=== PATIENT | female | born 1980 | race Caucasian/White ===

== ENCOUNTER 2016-09-20 14:50 | Emergency (ER) | payer OTHER ==
[2016-09-20 15:00] VITALS: BMI 23.0
--- NOTE | 2016-09-20 16:01 | PDOC ---
History of Present Illness - General Chief Complaint: Pain Stated Complaint: BACK PAIN, VOMITING Time Seen by Provider: 09/20/16 15:47 History Source: Patient Exam Limitations: No Limitations - History of Present Illness Initial Comments: 36 yo F no PMH presents with vaginal bleeding, abd pain for past 2 days. She states that the pain is sharp, crampy, intermittent. She has been having shaking in her body with the pain. She c/o nausea but no vomiting or diarrhea. No fever. When she attempts to lay back, she gets back pain. Past History - Past Medical History Allergies/Adverse Reactions: Allergies Allergy/AdvReac Type Severity Reaction Status Date / Time No Known Allergies Allergy Verified 09/20/16 15:00 Home Medications: Ambulatory Orders Cephalexin Monohydrate [Keflex -] 500 mg PO BID #14 capsule 09/21/16 Thyroid Disease: Yes - Psycho/Social/Smoking Cessation Hx Anxiety: No Suicidal Ideation: No Smoking Status: No Smoking History: Never smoked Number of Cigarettes Smoked Daily: 0 Information on smoking cessation initiated: No Hx Alcohol Use: No Drug/Substance Use Hx: No Substance Use Type: None Review of Systems - Review of Systems Able to Perform ROS?: Yes Comments:: GENERAL/CONSTITUTIONAL: No fever or chills. No weakness. HEAD, EYES, EARS, NOSE AND THROAT: No change in vision. No ear pain or discharge. No sore throat. CARDIOVASCULAR: No chest pain or shortness of breath. RESPIRATORY: No cough, wheezing, or hemoptysis. GASTROINTESTINAL: +Nausea. No vomiting, diarrhea or constipation. GENITOURINARY: No dysuria, frequency, or change in urination. +Vaginal bleeding MUSCULOSKELETAL: No joint or muscle swelling or pain. No neck pain. +Low back pain. SKIN: No rash NEUROLOGIC: No headache, vertigo, loss of consciousness, or change in strength/ sensation. ENDOCRINE: No increased thirst. No abnormal weight change. HEMATOLOGIC/LYMPHATIC: No anemia, easy bleeding, or history of blood clots. ALLERGIC/IMMUNOLOGIC: No hives or skin allergy. *Physical Exam - Vital Signs Last Vital Signs Temp Pulse Resp BP Pulse Ox 98.2 F 110 H 18 116/59 97 09/20/16 14:57 09/20/16 14:57 09/20/16 14:57 09/20/16 14:57 04/03/17 14:57 - Physical Exam Comments: GENERAL: Awake, alert, and fully oriented. Appears uncomfortable. +Body tremors. HEAD: No signs of trauma EYES: PERRLA, EOMI, sclera anicteric, conjunctiva clear ENT: Auricles normal inspection, hearing grossly normal, nares patent, oropharynx clear without exudates. Moist mucosa NECK: Normal ROM, supple, no lymphadenopathy, JVD, or masses LUNGS: Breath sounds equal, clear to auscultation bilaterally. No wheezes, and no crackles HEART: Regular rate and rhythm, normal S1 and S2, no murmurs, rubs or gallops ABDOMEN: Soft, +suprapubic and LLQ tenderness, normoactive bowel sounds. No guarding, no rebound. No masses. +R CVAT. EXTREMITIES: Normal range of motion, no edema. No clubbing or cyanosis. No cords, erythema, or tenderness NEUROLOGICAL: Cranial nerves II through XII grossly intact. Normal speech, normal gait SKIN: Warm, Dry, normal turgor, no rashes or lesions noted. : No external lesions. Trace blood in the vault. No discharge. No masses, no adnexal tenderness, no CMT. ED Treatment Course - LABORATORY CBC & Chemistry Diagram: 09/20/16 16:07 09/20/16 16:07 Medical Decision Making - Medical Decision Making 09/20/16 19:[address] Recio. Presented with tremors, abd pain, vaginal bleeding. She states that she has had lengthy periods in the past, lasting up to 15 days. However, the pain and tremors have not been present before. Pelvic exam showed blood in the vault, but not heavy bleeding. No tenderness on bimanual. Labs show elevated WBC. I have ordered CT a/p to further evaluate. *DC/Admit/Observation/Transfer Diagnosis at time of Disposition: UTI (lower urinary tract infection) - Discharge Dispostion Disposition: HOME Condition at time of disposition: Improved - Prescriptions Prescriptions: Cephalexin Monohydrate [Keflex -] 500 mg PO BID #14 capsule - Patient Instructions Printed Discharge Instructions: DI for Urinary Tract Infection (UTI) Print Language: TAMAZIGHT
[2016-09-20] MEDS ORDERED: SODIUM CHLORIDE 1,000 ML IV STA ×3 (16:02→20:58)
[2016-09-20] MEDS ORDERED: ONDANSETRON 4 MG/2 ML VIAL IVPUSH ONE (16:02)
[2016-09-20] MEDS ORDERED: morphine CARPU-JECT 4 MG/1 ML DISP.SYRIN IVPUSH ONE ×2 (16:02→17:01)
[2016-09-20] MEDS ORDERED: morphine CARPU-JECT 4 MG/1 ML DISP.SYRIN ONE ×2 (16:02→17:02)
[2016-09-20] MEDS ORDERED: ONDANSETRON 4 MG/2 ML VIAL ONE (16:03)
[2016-09-20 16:45] LABS: MCH 26.4 pg (25.7-33.7); MCHC 32.4 g/dl (32.0-36.0); MEAN CELL VOLUME 81.5 fl (80-96); MEAN PLT VOLUME 9.4 fl (7.5-11.1); PLATELET COUNT 252 K/MM3 (134-434); RDW 15.7 % (11.6-15.6); WHITE BLOOD COUNT 15.7 K/mm3 (4.0-10.0)
[2016-09-20 17:04] LABS: URINE APPEARANCE SLCLOUDY; URINE COLOR AMBER; URINE GLUCOSE (UA) NEGATIVE (NEGATIVE); URINE KETONE NEGATIVE (NEGATIVE); URINE LEUK ESTERASE NEGATIVE (NEGATIVE); URINE NITRITE NEGATIVE (NEGATIVE); URINE UROBILINOGEN NEGATIVE E.U./dl (0.2-1.0)
[2016-09-20 17:20] LABS: ALBUMIN 3.8 g/dl (3.4-5.0); ANION GAP 14 (8-16); CALCIUM 8.2 mg/dL (8.5-10.1); CO2 21 mmol/L (21-32); CREATININE 0.9 mg/dL (0.55-1.02); GLUCOSE,RANDOM 107 mg/dL (74-106); SGOT/AST 21 U/L (15-37); SGPT/ALT 27 U/L (12-78)
[2016-09-20 17:21] LABS: ALK PHOS 81 U/L (45-117); BILIRUBIN,TOTAL 0.6 mg/dL (0.2-1.0); TOT PROT 7.5 g/dl (6.4-8.2)
[2016-09-20 17:25] LABS: URINE BLOOD 2+ (NEGATIVE); URINE PROTEIN 2+ (NEGATIVE)
[2016-09-20 17:28] LABS: URINE BACTERIA RARE /hpf (NONE SEEN); URINE HYALINE CAST 6 /lpf; URINE MUCUS MANY; URINE RBC 190 /hpf (0-3); URINE WBC 6 /hpf (3-5)
[2016-09-20 18:00] LABS: PLATELET ESTIMATE ADEQUATE (NORMAL)
[2016-09-20] MEDS ORDERED: CEFTRIAXONE 50 ML ONE (21:03)
--- NOTE | 2016-09-21 00:26 | PDOC ---
*Physical Exam - Vital Signs Last Vital Signs Temp Pulse Resp BP Pulse Ox 98.4 F 87 18 100/55 96 09/20/16 22:00 09/20/16 22:00 09/20/16 22:00 09/20/16 22:00 09/20/16 22:00 ED Treatment Course - LABORATORY CBC & Chemistry Diagram: 09/20/16 16:07 09/20/16 16:07 - ADDITIONAL ORDERS Additional order review: Laboratory Results 09/20/16 09/20/16 09/20/16 16:07 16:07 16:07 Sodium 139 Potassium 3.6 Chloride 104 Carbon Dioxide 21 Anion Gap 14 BUN 18 Creatinine 0.9 Creat Clearance w eGFR > 60 Random Glucose 107 H Calcium 8.2 L Total Bilirubin 0.6 D AST 21 D ALT 27 Alkaline Phosphatase 81 D Total Protein 7.5 Albumin 3.8 Lipase 136 Serum , Qual Negative Urine Color Shira Urine Appearance Slcloudy Urine pH 5.0 Ur Specific [place] 1.043 H Urine Protein 2+ H Urine Glucose (UA) Negative Urine Ketones Negative Urine Blood 2+ H Urine Nitrite Negative Urine Bilirubin 2.0 Urine Urobilinogen Negative Ur Leukocyte Esterase Negative Urine RBC 190 Urine WBC 6 Ur Epithelial Cells Moderate Urine Bacteria Rare Hyaline Casts 6 Urine Mucus Many 09/20/16 16:07 RBC 4.32 MCV 81.5 MCHC 32.4 RDW 15.7 H D MPV 9.4 Neutrophils % 82.0 D Lymphocytes % 7.0 L D Monocytes % 5.0 - RADIOLOGY Radiology Studies Ordered: Category Date Time Status CHEST PA & LAT [RAD] Stat Radiology 09/20/16 22:27 Taken - Medications Given in the ED: ED Medications Discontinued Medications Generic Name Dose Route Start Last Admin Trade Name Zhenq PRN Reason Stop Dose Admin Ceftriaxone Sodium 1,000 mg 09/20/16 20:50 09/20/16 21:10 Rocephin - IVPB 09/20/16 20:51 1,000 mg ONCE ONE Administration Diphenhydramine HCl 25 mg 09/20/16 18:49 09/20/16 18:59 Benadryl Injection - IVPB 09/20/16 18:50 25 mg ONCE ONE Administration Sodium Chloride 1,000 mls @ 1,000 mls/hr 09/20/16 16:02 09/20/16 16:10 Normal Saline - IV 09/20/16 17:01 1,000 mls/hr ASDIR STA Administration Sodium Chloride 1,000 mls @ 1,000 mls/hr 09/20/16 18:49 09/20/16 18:59 Normal Saline - IV 09/20/16 19:48 1,000 mls/hr ASDIR STA Administration Sodium Chloride 1,000 mls @ 1,000 mls/hr 09/20/16 20:58 09/20/16 21:10 Normal Saline - IV 09/20/16 21:57 1,000 mls/hr ASDIR STA Administration Morphine Sulfate 4 mg 09/20/16 16:02 09/20/16 16:10 Morphine Injection - IVPUSH 09/20/16 16:03 4 mg ONCE ONE Administration Morphine Sulfate 4 mg 09/20/16 17:01 09/20/16 17:20 Morphine Injection - IVPUSH 09/20/16 17:02 4 mg ONCE ONE Administration Ondansetron HCl 4 mg 09/20/16 16:02 09/20/16 16:10 Zofran Injection IVPUSH 09/20/16 16:03 4 mg ONCE ONE Administration Medical Decision Making - Medical Decision Making 09/21/16 00:24 pt feels better after IV Abx. Flank pain has improved. Pt will be discharged and will follow up with her pcp or the doctor referred to her in the department. *DC/Admit/Observation/Transfer Diagnosis at time of Disposition: UTI (lower urinary tract infection) - Discharge Dispostion Disposition: HOME Condition at time of disposition: Improved Admit: No - Patient Instructions Printed Discharge Instructions: DI for Urinary Tract Infection (UTI) Print Language: LUX[place]BOURGISH
[2016-09-21 01:29] VITALS: BP 112/60; PULSE 85; TEMP 98.3
== END 2016-09-21 02:43 | disposition home or self-care (01) ==
LOC: JER 14:50
PROC: 3E0337Z Introduction of Electrolytic and Water Balance Substance into Peripheral Vein, Percutaneous Approach (ICD-10-PCS; principal; 2016-09-20)
PROC: 3E033NZ Introduction of Analgesics, Hypnotics, Sedatives into Peripheral Vein, Percutaneous Approach (ICD-10-PCS; 2016-09-20)
PROC: 3E033GC Introduction of Other Therapeutic Substance into Peripheral Vein, Percutaneous Approach (ICD-10-PCS; 2016-09-20)
PROC: 3E03329 Introduction of Other Anti-infective into Peripheral Vein, Percutaneous Approach (ICD-10-PCS; 2016-09-20)
PROC: 3E033GC Introduction of Other Therapeutic Substance into Peripheral Vein, Percutaneous Approach (ICD-10-PCS; 2016-09-20)
DX: N39.0 Urinary tract infection, site not specified (principal)
CPT/HCPCS: 36415; 71020-TC; 74177-TC; 80053; 81003; 81015; 83690; 84703; 85025; 87040; 87086; 96361; 96374; 96375; 99285-25; Q9967

== ENCOUNTER 2017-11-18 09:55 | Emergency (ER) | payer OTHER ==
[2017-11-18 10:00] VITALS: BP 105/62; PULSE 75; TEMP 98.3; BMI 23.9
[2017-11-18] MEDS ORDERED: morphine SULFATE 4 MG/ML VIAL ONE (10:12)
[2017-11-18] MEDS ORDERED: morphine CARPU-JECT 4 MG/1 ML DISP.SYRIN IVPUSH ONE (10:14)
--- NOTE | 2017-11-18 10:14 | PDOC ---
History of Present Illness - General Chief Complaint: Pain Stated Complaint: STOMACH PAIN Time Seen by Provider: 11/18/17 10:06 - History of Present Illness Initial Comments: Patient is a 37 year old female, with a significant past medical history of hypothyroidism, who presents to the emergency department complaining of L flank and groin pain that started this AM. Pt was in her USOH this AM when she reports acute onset of sharp L-sided flank pain with radiation to the groin beginning suddenly after taking her morning medication. Pt denies any f/c/n/v/d , cough, SOB, CP, ab pain, diarrhea, constipation, rashes, hematuria, pyuria, dysuria, hesitancy, melena, hematochezia. Pt with no hx of kidney stones. Pt with hx of UTIs and ovarian cyst in the past, but no other [place] conditions. Pt with no recent travel, sick contacts or dietary changes. Allergies: None Past surgical history: , appendectomy Social History: Denies alcohol, drug use, smoking PMD: None 11/18/17 10:47 Past History - Past Medical History Allergies/Adverse Reactions: Allergies Allergy/AdvReac Type Severity Reaction Status Date / Time No Known Allergies Allergy Verified 11/18/17 09:56 Home Medications: Ambulatory Orders Cephalexin Monohydrate [Keflex -] 500 mg PO BID #14 capsule 09/21/16 COPD: No Thyroid Disease: Yes - Surgical History Appendectomy: Yes - Reproductive History (#): 3 Para: 3 Cervical CA: No Dysfunctional Uterine Bleeding: No Ectopic : No Endometrial CA: No Polycystic Ovaries: No Tubal Ligation: No - Suicide/Smoking/Psychosocial Hx Smoking Status: No Smoking History: Never smoked Number of Cigarettes Smoked Daily: 0 Information on smoking cessation initiated: No Hx Alcohol Use: No Drug/Substance Use Hx: No Substance Use Type: None Review of Systems - Review of Systems Comments:: GENERAL/CONSTITUTIONAL: No fever or chills. No weakness. HEAD, EYES, EARS, NOSE AND THROAT: No change in vision. No ear pain or discharge. No sore throat. CARDIOVASCULAR: No chest pain or shortness of breath RESPIRATORY: No cough, wheezing, or hemoptysis. GASTROINTESTINAL: No nausea, vomiting, diarrhea or constipation. GENITOURINARY: No dysuria, frequency, or change in urination; + groin pain, L MUSCULOSKELETAL: No joint or muscle swelling or pain. No neck pain. + L flank pain SKIN: No rash NEUROLOGIC: No headache, vertigo, loss of consciousness, or change in strength/ sensation. ENDOCRINE: No increased thirst. No abnormal weight change HEMATOLOGIC/LYMPHATIC: No anemia, easy bleeding, or history of blood clots. ALLERGIC/IMMUNOLOGIC: No hives or skin allergy. 11/18/17 10:54 *Physical Exam - Vital Signs Last Vital Signs Temp Pulse Resp BP Pulse Ox 98.3 F 75 18 105/62 100 11/18/17 09:58 11/18/17 09:58 11/18/17 09:58 11/18/17 09:58 11/18/17 09:58 - Physical Exam Comments: GENERAL: Young woman, Awake, alert, and fully oriented, in severe distress HEAD: No signs of trauma, normocephalic, atraumatic EYES: PERRLA, EOMI, sclera anicteric, conjunctiva clear ENT: Auricles normal inspection, hearing grossly normal, nares patent, oropharynx clear without exudates. Moist mucosa NECK: Normal ROM, supple, no lymphadenopathy, JVD, or masses LUNGS: No distress, speaks full sentences, clear to auscultation bilaterally HEART: Tachy, Regular rate and rhythm, normal S1 and S2, no murmurs, rubs or gallops, peripheral pulses normal and equal bilaterally. ABDOMEN: +LLQ. Soft, normoactive bowel sounds. No guarding, no rebound. No masses. + L CVA tenderness. EXTREMITIES : Normal inspection, Normal range of motion, no edema. No clubbing or cyanosis. NEUROLOGICAL: Cranial nerves II through XII grossly intact. Normal speech, normal gait, no focal sensorimotor deficits SKIN: Warm, Dry, normal turgor, no rashes or lesions noted 11/18/17 10:55 ED Treatment Course - LABORATORY CBC & Chemistry Diagram: 11/18/17 10:00 11/18/17 10:00 Medical Decision Making - Medical Decision Making Patient is a 37 year old female, with a significant past medical history of hypothyroidism, who presents to the emergency department complaining of L flank and groin pain that started this AM. Ddx kidney stone, ovarian torsion, ovarian cyst, ectopic , UTI, pyelonephritis, diverticulitis, gas pain, constipation. Plan: - cbc, cmp, coags, lactate - UA, urine culture - TVUS w/ possible f/u CT A/P if negative - Morphine IV for pain control. 11/18/17 10:59 TVUS notable for 1.8 x 1.3 cm cyst on left ovary, negative for torsion. CT A/P negative for any acute pathology. Pain better controlled, vitals stable. Will discharge home with outpt follow-up with Dr. Locke in resident clinic and pt OB/ [employer]. 11/18/17 16:46 *DC/Admit/Observation/Transfer Diagnosis at time of Disposition: Ovarian cyst Qualifiers: Laterality: left Qualified Code(s): N83.202 - Unspecified ovarian cyst, left side - Discharge Dispostion Disposition: HOME Condition at time of disposition: Good Decision to Admit order: No - Referrals Referrals: Adrian Locke MD [Staff Physician] - - Patient Instructions Printed Discharge Instructions: DI for Ovarian Cyst Additional Instructions: During your visit to the [facility] ED, you were evaluated for left-sided flank pain. You received imaging and standard lab tests, which were notable for a cyst on your left ovary. You are being discharged home with an outpatient referral for Dr. Locke in clinic for your primary care coverage and follow-up with your OB/ [employer] doctor. You imaging results have been provided to you. Please take tylenol 650mg every four hours if you experience pain until your symptoms resolve. You are being provided a referral for follow-up with Dr. Locke in the resident clinic for primary care coverage. Please call the number provided in this packet to schedule an appointment within one week. If you experience any of the following symptoms, please return to the ED: - Persistent fevers/chills >3 days - Worsening vaginal or rectal bleeding or persistent blood in your stool - Persistent pain in your abdomen or pelvis - Persistent dizziness/lightheadness/loss of consciousness - Any new or concerning symptoms - Post Discharge Activity Forms/Work/School Notes: Back to Work
--- NOTE | 2017-11-18 10:16 | PDOC ---
Attending Attestation - Resident Resident Name: Samuel De Luna - ED Attending Attestation I have performed the following: I have examined & evaluated the patient, The case was reviewed & discussed with the resident, I agree w/resident's findings & plan, Exceptions are as noted - HPI HPI: 11/18/17 10:29 37y F hx of hypothyroidism presents with sudden onset of L groin/flank pain this morning. Pain is idscribed as sharp, constant, worse in the LLQ that radiates to the L flank, no n/v, hematuria, dysuria, fever/chills, cp, diarrhea , sob. on exam pt appears uncomfortbable with mild tenderness in the LLQ. n ocva tenderness ddx includes kidney stones, ovarian torsion, ectopic will ck labs, ua, hcg 11/18/17 15:[address] abd unremarakble. TVUS noted for cyst, likely cause of her pain will dc with sales office administrator fu - Physicial Exam PE: 11/22/17 12:42 see above - Medical Decision Making 11/22/17 12:42 see above
[2017-11-18 10:48] LABS: BASO % 0.6 % (0-2.0); EOS % 2.1 % (0-4.5); HEMATOCRIT 32.5 % (32.4-45.2); HEMOGLOBIN 10.6 GM/dL (10.7-15.3); LYMPH % 28.6 % (8-40); MCH 26.2 pg (25.7-33.7); MCHC 32.5 g/dl (32.0-36.0); MEAN CELL VOLUME 80.5 fl (80-96); MEAN PLT VOLUME 9.5 fl (7.5-11.1); MONO % 8.6 % (3.8-10.2); NEUT % 60.1 % (42.8-82.8); PLATELET COUNT 287 K/MM3 (134-434); RBC 4.04 M/mm3 (3.60-5.2); RDW 15.7 % (11.6-15.6); WHITE BLOOD COUNT 6.5 K/mm3 (4.0-10.0)
[2017-11-18 10:50] LABS: URINE APPEARANCE CLEAR; URINE BILIRUBIN NEGATIVE (<2.0 mg/dL); URINE COLOR STRAW; URINE GLUCOSE (UA) NEGATIVE (NEGATIVE); URINE KETONE NEGATIVE (NEGATIVE); URINE LEUK ESTERASE NEGATIVE (NEGATIVE); URINE NITRITE NEGATIVE (NEGATIVE); URINE PROTEIN NEGATIVE (NEGATIVE); URINE UROBILINOGEN NEGATIVE mg/dL (0.2-1.0)
[2017-11-18 11:21] LABS: INR 0.96 (0.82-1.09); PROTHROMBIN TIME (PATIENT) 10.8 SEC (9.7-13.0)
[2017-11-18 11:35] LABS: ALBUMIN 3.7 g/dl (3.4-5.0); ANION GAP 9 (8-16); BLOOD UREA NITROGEN 11 mg/dL (7-18); CALCIUM 8.4 mg/dL (8.5-10.1); CHLORIDE 105 mmol/L (98-107); CO2 22 mmol/L (21-32); CREATININE 0.7 mg/dL (0.55-1.02); GLUCOSE,RANDOM 126 mg/dL (74-106); POTASSIUM 4.1 mmol/L (3.5-5.1); SGOT/AST 18 U/L (15-37); SODIUM 136 mmol/L (136-145); TOT PROT 7.4 g/dl (6.4-8.2)
[2017-11-18 11:45] LABS: ALK PHOS 93 U/L (45-117); BILIRUBIN,TOTAL 0.3 mg/dL (0.2-1.0); SGPT/ALT 21 U/L (12-78)
[2017-11-18] MEDS ORDERED: KETOROLAC TROMETHAMINE 30 MG/1 ML VIAL IVPUSH ONE (12:58)
[2017-11-18] MEDS ORDERED: KETOROLAC TROMETHAMINE 30 MG/1 ML VIAL ONE (13:23)
== END 2017-11-18 17:20 | disposition home or self-care (01) ==
LOC: JER 09:55
PROC: 3E033NZ Introduction of Analgesics, Hypnotics, Sedatives into Peripheral Vein, Percutaneous Approach (ICD-10-PCS; principal; 2017-11-18)
DX: N83.202 Unspecified ovarian cyst, left side (principal); E03.9 Hypothyroidism, unspecified
CPT/HCPCS: 36415; 74176-TC; 76830-TC; 80053; 81003; 83605; 84703; 85025; 85610; 87086; 96374; 96375; 99283-25

== ENCOUNTER 2018-01-07 11:14 | Emergency (ER) | payer OTHER ==
[2018-01-07 11:39] VITALS: BMI 22.6
[2018-01-07] MEDS ORDERED: SODIUM CHLORIDE 0.9% 1000 ML INFUS.BAG IV ONE (12:19)
[2018-01-07 12:47] LABS: URINE APPEARANCE CLEAR; URINE BILIRUBIN NEGATIVE (<2.0 mg/dL); URINE COLOR COLORLESS; URINE GLUCOSE (UA) NEGATIVE (NEGATIVE); URINE KETONE NEGATIVE (NEGATIVE); URINE LEUK ESTERASE NEGATIVE (NEGATIVE); URINE NITRITE NEGATIVE (NEGATIVE); URINE PROTEIN NEGATIVE (NEGATIVE); URINE UROBILINOGEN NEGATIVE mg/dL (0.2-1.0)
[2018-01-07] MEDS ORDERED: morphine CARPU-JECT 4 MG/1 ML DISP.SYRIN IVPUSH ONE (12:48)
[2018-01-07] MEDS ORDERED: morphine SULFATE 4 MG/ML VIAL ONE (12:52)
[2018-01-07] MEDS ORDERED: ONDANSETRON 4 MG/2 ML VIAL IVPUSH ONE (12:55)
[2018-01-07 13:02] LABS: HCG,QUALITATIVE URINE NEGATIVE
[2018-01-07] MEDS ORDERED: ONDANSETRON 4 MG/2 ML VIAL ONE (13:07)
--- NOTE | 2018-01-07 13:11 | PDOC ---
History of Present Illness - General History Source: Patient Exam Limitations: No Limitations - History of Present Illness Initial Comments: 01/07/18 13:14 The patient is a 37 year old female with a past medical history of ovarian cysts and hypothyroidism who presents to the emergency department for evaluation of abdominal pain. The patient reports moderate left lower quadrant abdominal pain since yesterday. She describes the LLQ pain as stabbing, radiating from the left side to the groin and back, and is exacerbated with movement. Pt reports 5 episodes of NBNB emesis yesterday, but denies emesis today. She reports an associated symptom of dysuria. The patient notes the pain is reminiscent of her pain associated with her prior experience with an ovarian cyst. She notes she had a normal bowel movement this morning. Of note, patient states her LMP was 01/01/18 with no abnormalities. The patient denies chest pain, shortness of breath, headache, and dizziness. Denies f/c, n/v, diarrhea, and constipation. Denies urinary frequency/urgency and hematuria. Allergies: NKDA Social History: No reported alcohol, cigarette, or drug use. Surgical History: Appendectomy, . <Maicol Schulz - Last Filed: 01/07/18 13:15> - General History Source: Patient Exam Limitations: No Limitations <Smiley Ramírez - Last Filed: 01/07/18 16:47> - General Chief Complaint: Pain Stated Complaint: ABD PAIN Time Seen by Provider: 01/07/18 11:57 Past History <Maicol Schulz - Last Filed: 01/07/18 13:15> - Past Medical History COPD: No Thyroid Disease: Yes (hypo) - Surgical History Appendectomy: Yes - Reproductive History (#): 3 Para: 3 Cervical CA: No Dysfunctional Uterine Bleeding: No Ectopic : No Endometrial CA: No Polycystic Ovaries: No Tubal Ligation: No - Suicide/Smoking/Psychosocial Hx Smoking Status: No Smoking History: Never smoked Have you smoked in the past 12 months: No Number of Cigarettes Smoked Daily: 0 Information on smoking cessation initiated: No Hx Alcohol Use: No Drug/Substance Use Hx: No Substance Use Type: None <Smiley Ramírez - Last Filed: 01/07/18 16:47> - Past Medical History Allergies/Adverse Reactions: Allergies Allergy/AdvReac Type Severity Reaction Status Date / Time No Known Allergies Allergy Verified 11/18/17 09:56 Home Medications: Ambulatory Orders NK [No Known Home Medication] 01/07/18 Review of Systems - Review of Systems Able to Perform ROS?: Yes Comments:: GENERAL/CONSTITUTIONAL: No fever or chills. No weakness. HEAD, EYES, EARS, NOSE AND THROAT: No change in vision. No ear pain or discharge. No sore throat. CARDIOVASCULAR: No chest pain or shortness of breath. RESPIRATORY: No cough, wheezing, or hemoptysis. GASTROINTESTINAL: (+)Nausea. (+)Vomiting. No diarrhea or constipation. GENITOURINARY: (+)Dysuria. No urinary frequency, or change in urination. MUSCULOSKELETAL: (+)LLQ Abdominal pain. (+)Back pain. No joint pain. No neck pain. SKIN: No rash NEUROLOGIC: No headache, vertigo, loss of consciousness, or change in strength/ sensation. ENDOCRINE: No increased thirst. No abnormal weight change. HEMATOLOGIC/LYMPHATIC: No anemia, easy bleeding, or history of blood clots. ALLERGIC/IMMUNOLOGIC: No hives or skin allergy. <Maicol Schulz - Last Filed: 01/07/18 13:15> *Physical Exam - Vital Signs Last Vital Signs Temp Pulse Resp BP Pulse Ox 98.6 F 71 17 102/62 100 01/07/18 11:36 01/07/18 11:36 01/07/18 11:36 01/07/18 11:36 01/07/18 11:36 - Physical Exam Comments: GENERAL: Awake, alert, and fully oriented, in no acute distress HEAD: No signs of trauma EYES: PERRLA, EOMI, sclera anicteric, conjunctiva clear ENT: Auricles normal inspection, hearing grossly normal, nares patent. Moist mucosa NECK: Normal ROM, supple, no lymphadenopathy, JVD, or masses LUNGS: Breath sounds equal, clear to auscultation bilaterally. No wheezes, and no crackles HEART: Regular rate and rhythm, normal S1 and S2, no murmurs, rubs or gallops ABDOMEN: (+)Suprapubic left lower quadrant tenderness with moderate rebound and guarding. (+)Left CVA tenderness. Pelvic: (Joanne present) left adnexal tenderness. Speculiant exam: white discharge in vaginal vault. EXTREMITIES: Normal range of motion, no edema. No erythema or tenderness. DP/PT pulses 2+ and symmetric. Warm and well perfused. NEUROLOGICAL: Moves all extremities. Normal speech, normal gait SKIN: Warm, Dry, normal turgor, no rashes or lesions noted. <Maicol Schulz - Last Filed: 01/07/18 13:15> - Vital Signs Last Vital Signs Temp Pulse Resp BP Pulse Ox 98.6 F 71 17 102/62 100 01/07/18 11:36 01/07/18 11:36 01/07/18 11:36 01/07/18 11:36 01/07/18 11:36 <Anders Ramíreza - Last Filed: 01/07/18 16:47> ED Treatment Course - ADDITIONAL ORDERS Additional order review: Laboratory Results 01/07/18 12:31 Urine Color Colorless Urine Appearance Clear Urine pH 6.0 D Ur Specific [place] 1.002 Urine Protein Negative Urine Glucose (UA) Negative Urine Ketones Negative Urine Blood Negative Urine Nitrite Negative Urine Bilirubin Negative Urine Urobilinogen Negative Ur Leukocyte Esterase Negative Urine HCG, Qual Negative - Medications Given in the ED: ED Medications Discontinued Medications Generic Name Dose Route Start Last Admin Trade Name Freq PRN Reason Stop Dose Admin Morphine Sulfate 4 mg 01/07/18 12:48 01/07/18 13:06 Morphine Injection - IVPUSH 01/07/18 12:49 4 mg ONCE ONE Administration Ondansetron HCl 4 mg 01/07/18 12:55 01/07/18 13:06 Zofran Injection IVPUSH 01/07/18 12:56 4 mg ONCE ONE Administration Sodium Chloride 1,000 ml 01/07/18 12:19 01/07/18 13:06 Normal Saline - IV 01/07/18 12:20 1,000 ml ONCE ONE Administration <Maicol Schulz - Last Filed: 01/07/18 13:15> - LABORATORY CBC & Chemistry Diagram: 01/07/18 13:01 01/07/18 13:01 - ADDITIONAL ORDERS Additional order review: Laboratory Results 01/07/18 12:31 Urine Color Colorless Urine Appearance Clear Urine pH 6.0 D Ur Specific [place] 1.002 Urine Protein Negative Urine Glucose (UA) Negative Urine Ketones Negative Urine Blood Negative Urine Nitrite Negative Urine Bilirubin Negative Urine Urobilinogen Negative Ur Leukocyte Esterase Negative Urine HCG, Qual Negative - RADIOLOGY Radiology Studies Ordered: Category Date Time Status TRANSVAGINAL ULTRASOUND US [US] Stat Ultrasound 01/07/18 12:49 Ordered <Smiley Ramírez - Last Filed: 01/07/18 16:47> Medical Decision Making - Medical Decision Making 01/07/18 16:46 pt feels improved. tolerating soup and cracklers. ct a/p negative. transvaginal us negative. dc home with instructions for gi followup , return as needed. <Smiley Ramírez - Last Filed: 01/07/18 16:47> *DC/Admit/Observation/Transfer - Attestations Scribe Attestion: Documentation prepared by Maicol Schulz, acting as medical receptionist assistant for Smiley Ramírez MD. <Maicol Schulz - Last Filed: 01/07/18 13:15> <Smiley Ramírez - Last Filed: 01/07/18 16:47> Diagnosis at time of Disposition: Gastritis - Discharge Dispostion Disposition: HOME Condition at time of disposition: Improved - Referrals Referrals: Jack Marin MD [Staff Physician] - - Patient Instructions Printed Discharge Instructions: DI for Abdominal Pain-Adult Additional Instructions: your ct of your abdomen was negative for any acute illness. your labs are all normal including negative urinalysis. your ultrasound of your ovaries is also normal. return for any problems or concerns. follow up with your primary doctor.
[2018-01-07 13:20] LABS: BASO % 0.5 % (0-2.0); EOS % 1.6 % (0-4.5); HEMATOCRIT 36.4 % (32.4-45.2); HEMOGLOBIN 11.8 GM/dL (10.7-15.3); LYMPH % 37.4 % (8-40); MCH 26.5 pg (25.7-33.7); MCHC 32.4 g/dl (32.0-36.0); MEAN CELL VOLUME 81.7 fl (80-96); MEAN PLT VOLUME 9.2 fl (7.5-11.1); MONO % 7.7 % (3.8-10.2); NEUT % 52.8 % (42.8-82.8); PLATELET COUNT 317 K/MM3 (134-434); RBC 4.46 M/mm3 (3.60-5.2); RDW 16.8 % (11.6-15.6); WHITE BLOOD COUNT 6.8 K/mm3 (4.0-10.0)
[2018-01-07 14:55] LABS: ALBUMIN 3.9 g/dl (3.4-5.0); ALK PHOS 90 U/L (45-117); ANION GAP 8 (8-16); BILIRUBIN,TOTAL 0.3 mg/dL (0.2-1.0); BLOOD UREA NITROGEN 8 mg/dL (7-18); CALCIUM 8.9 mg/dL (8.5-10.1); CHLORIDE 108 mmol/L (98-107); CO2 25 mmol/L (21-32); CREATININE 0.7 mg/dL (0.55-1.02); GLUCOSE,RANDOM 88 mg/dL (74-106); LIPASE 144 U/L (73-393); SGOT/AST 18 U/L (15-37); SGPT/ALT 24 U/L (12-78); SODIUM 141 mmol/L (136-145); TOT PROT 7.7 g/dl (6.4-8.2)
[2018-01-07] MEDS ORDERED: KETOROLAC TROMETHAMINE 30 MG/1 ML VIAL ONE (15:02)
[2018-01-07] MEDS ORDERED: KETOROLAC TROMETHAMINE 30 MG/1 ML VIAL IVPUSH ONE (15:03)
[2018-01-07 18:22] VITALS: BP 101/54; PULSE 75; TEMP 98.1
== END 2018-01-07 16:50 | disposition home or self-care (01) ==
LOC: JER 11:14
PROC: 3E033GC Introduction of Other Therapeutic Substance into Peripheral Vein, Percutaneous Approach (ICD-10-PCS; principal; 2018-01-07)
PROC: 3E033NZ Introduction of Analgesics, Hypnotics, Sedatives into Peripheral Vein, Percutaneous Approach (ICD-10-PCS; 2018-01-07)
PROC: 3E0333Z Introduction of Anti-inflammatory into Peripheral Vein, Percutaneous Approach (ICD-10-PCS; 2018-01-07)
DX: K29.70 Gastritis, unspecified, without bleeding (principal); E03.9 Hypothyroidism, unspecified
CPT/HCPCS: 36415; 74176; 76830-TC; 80053; 81003; 83690; 84703; 85025; 96374; 96375; 99283-25; J7030

== ENCOUNTER 2018-04-25 16:47 | Emergency (ER) | payer OTHER ==
--- NOTE | 2018-04-25 17:04 | PDOC ---
Rapid Medical Evaluation Chief Complaint: Pain Time Seen by Provider: 04/25/18 17:01 Medical Evaluation: Allergies Allergy/AdvReac Type Severity Reaction Status Date / Time No Known Allergies Allergy Verified 11/18/17 09:56 04/25/18 17:02 I have performed a brief in person evaluation of this patient. This patient presents with a CC of: left rib pain Pt is a 37 YO female who states that she fell onto her dresser last night onto her left rib. Pt took Motrin 40 min BLOOD COORDINATOR. Pt states the pain is a 7/10. PE: Skin: Clear Chest: Pt has pain upon palpation to the left anterior ribs. Lungs: Clear Heart: RRR Abd: No pain MS: Moves all extremities without difficulty. Neuro: Alert and oriented Psych: Appropriate affect I have ordered the following: left rib xray with AP CXR The patient will proceed to the [facility] for further evaluation. Discharge Disposition - Diagnosis Rib pain on left side - Referrals - Patient Instructions - Post Discharge Activity
[2018-04-25 17:05] VITALS: BMI 25.4
[2018-04-25] MEDS ORDERED: SODIUM CHLORIDE 0.9% 500 ML INFUS.BAG IV ONE (17:41)
[2018-04-25] MEDS ORDERED: SODIUM CHLORIDE 0.9% 1000 ML INFUS.BAG IV ONE ×2 (17:47→18:54)
[2018-04-25 17:58] LABS: BASO % 0.8 % (0-2.0); EOS % 1.9 % (0-4.5); HEMATOCRIT 35.1 % (32.4-45.2); HEMOGLOBIN 11.9 GM/dL (10.7-15.3); LYMPH % 32.5 % (8-40); MCH 27.7 pg (25.7-33.7); MCHC 33.9 g/dl (32.0-36.0); MEAN CELL VOLUME 81.8 fl (80-96); MEAN PLT VOLUME 8.9 fl (7.5-11.1); MONO % 8.1 % (3.8-10.2); NEUT % 56.7 % (42.8-82.8); PLATELET COUNT 269 K/MM3 (134-434); RBC 4.29 M/mm3 (3.60-5.2); RDW 16.6 % (11.6-15.6)
[2018-04-25 18:16] LABS: INR 0.99 (0.83-1.09); PROTHROMBIN TIME (PATIENT) 11.7 SEC (9.7-13.0)
[2018-04-25 18:25] LABS: ALBUMIN 3.9 g/dl (3.4-5.0); ALK PHOS 94 U/L (45-117); ANION GAP 7 MMOL/L (8-16); BILIRUBIN,TOTAL 0.2 mg/dL (0.2-1); BLOOD UREA NITROGEN 11 mg/dL (7-18); CALCIUM 8.6 mg/dL (8.5-10.1); CHLORIDE 109 mmol/L (98-107); CO2 23 mmol/L (21-32); CREATININE 0.7 mg/dL (0.55-1.3); GLUCOSE,RANDOM 87 mg/dL (74-106); POTASSIUM 4.3 mmol/L (3.5-5.1); SGOT/AST 12 U/L (15-37); SGPT/ALT 20 U/L (13-61); SODIUM 139 mmol/L (136-145); TOT PROT 7.6 g/dl (6.4-8.2)
--- NOTE | 2018-04-25 18:57 | PDOC ---
History of Present Illness - General Chief Complaint: Pain Stated Complaint: RIGHT SIDE PAIN Time Seen by Provider: 04/25/18 17:01 - History of Present Illness Initial Comments: 04/25/18 18:55 37-year-old female presents for evaluation of abdominal pain and left-sided rib pain after fall yesterday. Past History - Past Medical History Allergies/Adverse Reactions: Allergies Allergy/AdvReac Type Severity Reaction Status Date / Time No Known Allergies Allergy Verified 04/25/18 17:02 Home Medications: Ambulatory Orders NK [No Known Home Medication] 01/07/18 COPD: No Thyroid Disease: Yes (hypo) - Surgical History Appendectomy: Yes - Reproductive History (#): 3 Para: 3 Cervical CA: No Dysfunctional Uterine Bleeding: No Ectopic : No Endometrial CA: No Polycystic Ovaries: No Tubal Ligation: No - Suicide/Smoking/Psychosocial Hx Smoking Status: No Smoking History: Never smoked Have you smoked in the past 12 months: No Number of Cigarettes Smoked Daily: 0 Hx Alcohol Use: No Drug/Substance Use Hx: No Substance Use Type: None Review of Systems - Review of Systems ABD/GI: Yes: See HPI Neurological: Yes: Weakness, Ataxia, Dizziness *Physical Exam - Vital Signs Last Vital Signs Temp Pulse Resp BP Pulse Ox 98.8 F 77 18 94/58 L 99 04/25/18 17:02 04/25/18 17:02 04/25/18 17:02 04/25/18 17:02 04/25/18 17:02 - Physical Exam Comments: 04/25/18 18:55 HEAD: NC/AT EYES: Conjuntiva clear Ears: Canals and TM's normal NOSE: No d/c THROAT: Moist mucous membrances, oral pharanx clear, uvula midline NECK: Supple without adenopathy CARDIAC: S1 S2 LUNGS: CTA Full and Equal breath sounds ABDOMEN: Soft diffuse tenderness with guarding and rebound MS: Full ROM in all joints without edema NEUROLOGIC: No gross sensory or motor deficits, NVID SKIN: Normal color and temperature no lesions or rashes ED Treatment Course - LABORATORY CBC & Chemistry Diagram: 04/25/18 17:30 04/25/18 17:30 - ADDITIONAL ORDERS Additional order review: Laboratory Results 04/25/18 04/25/18 04/25/18 17:30 17:30 17:30 PT with INR 11.70 INR 0.99 Sodium 139 Potassium 4.3 Chloride 109 H Carbon Dioxide 23 Anion Gap 7 L BUN 11 Creatinine 0.7 Creat Clearance w eGFR > 60 Random Glucose 87 Calcium 8.6 Total Bilirubin 0.2 AST 12 L ALT 20 Alkaline Phosphatase 94 Total Protein 7.6 Albumin 3.9 Urine HCG, Qual Negative 04/25/18 17:30 RBC 4.29 MCV 81.8 MCHC 33.9 RDW 16.6 H MPV 8.9 Neutrophils % 56.7 Lymphocytes % 32.5 Monocytes % 8.1 Eosinophils % 1.9 Basophils % 0.8 - RADIOLOGY Radiology Studies Ordered: Category Date Time Status ABDOMEN & PELVIS CT W/O CONTR [CT] Stat CT Scan 04/25/18 18:[address] WITHOUT CONTRAST [CT] Stat CT Scan 04/25/18 18:21 Taken - Medications Given in the ED: ED Medications Discontinued Medications Generic Name Dose Route Start Last Admin Trade Name Freq PRN Reason Stop Dose Admin Sodium Chloride 100 ml 04/25/18 17:41 04/25/18 18:01 Normal Saline - IV 04/25/18 17:42 Not Given ONCE ONE Sodium Chloride 1,000 ml 04/25/18 17:47 04/25/18 18:01 Normal Saline - IV 04/25/18 17:48 1,000 ml ONCE ONE Administration Medical Decision Making - Medical Decision Making 04/25/18 18:56 This patient is hypotensive with abdominal pain after trauma I will transfer to the main ER going CAT scan coming off the table she got lightheaded and dizzy I suspect a retroperitoneal hematoma or bleed *DC/Admit/Observation/Transfer Diagnosis at time of Disposition: Rib pain on left side, Abdominal pain - Referrals - Patient Instructions - Post Discharge Activity
[2018-04-25] MEDS ORDERED: ONDANSETRON 4 MG/2 ML VIAL IVPUSH ONE (19:36)
[2018-04-25] MEDS ORDERED: KETOROLAC TROMETHAMINE 30 MG/1 ML VIAL IVPUSH ONE (19:43)
--- NOTE | 2018-04-25 19:56 | PDOC ---
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 NML intact, Fully Oriented, Alert, Normal Mood/ Affect ED Treatment Course - LABORATORY CBC & Chemistry Diagram: 04/25/18 17:30 04/25/18 17:30 - ADDITIONAL ORDERS Additional order review: Laboratory Results 04/25/18 04/25/18 04/25/18 17:30 17:30 17:30 PT with INR 11.70 INR 0.99 Sodium 139 Potassium 4.3 Chloride 109 H Carbon Dioxide 23 Anion Gap 7 L BUN 11 Creatinine 0.7 Creat Clearance w eGFR > 60 Random Glucose 87 Calcium 8.6 Total Bilirubin 0.2 AST 12 L ALT 20 Alkaline Phosphatase 94 Total Protein 7.6 Albumin 3.9 Urine HCG, Qual Negative 04/25/18 17:30 RBC 4.29 MCV 81.8 MCHC 33.9 RDW 16.6 H MPV 8.9 Neutrophils % 56.7 Lymphocytes % 32.5 Monocytes % 8.1 Eosinophils % 1.9 Basophils % 0.8 - Medications Given in the ED: ED Medications Discontinued Medications Generic Name Dose Route Start Last Admin Trade Name Zhenq PRN Reason Stop Dose Admin Sodium Chloride 100 ml 04/25/18 17:41 04/25/18 18:01 Normal Saline - IV 04/25/18 17:42 Not Given ONCE ONE Sodium Chloride 1,000 ml 04/25/18 17:47 04/25/18 18:01 Normal Saline - IV 04/25/18 17:48 1,000 ml ONCE ONE Administration Sodium Chloride 1,000 ml 04/25/18 18:54 04/25/18 19:16 Normal Saline - IV 04/25/18 18:55 1,000 ml ONCE ONE Administration Medical Decision Making - Medical Decision Making 04/25/18 19:43 ct CHEST AND ABDOMEN PELVIS NEGATIVE. NO ACUTE FINDING. WILL TREAT NAUSEA AND PAIN. WILL REEVALUATE 04/25/18 21:56 patient is feeling a lot better. tolerated po . will d/c home *DC/Admit/Observation/Transfer Diagnosis at time of Disposition: Rib pain on left side Abdominal pain Qualifiers: Abdominal location: left upper quadrant Qualified Code(s): R10.12 - Left upper quadrant pain - Discharge Dispostion Disposition: HOME - Referrals - Patient Instructions Printed Discharge Instructions: DI for Hematoma (Bruise) Additional Instructions: you may take ibuprofen every 6 hours as needed for pain follow up with your doctor as soon as possible . - Post Discharge Activity Forms/Work/School Notes: Back to Work
[2018-04-25] MEDS ORDERED: KETOROLAC TROMETHAMINE 30 MG/1 ML VIAL ONE (20:05)
[2018-04-25] MEDS ORDERED: ONDANSETRON 4 MG/2 ML VIAL ONE (20:06)
[2018-04-25 21:22] LABS: URINE APPEARANCE CLEAR; URINE BILIRUBIN NEGATIVE (<2.0 mg/dL); URINE COLOR STRAW; URINE GLUCOSE (UA) NEGATIVE (NEGATIVE); URINE KETONE NEGATIVE (NEGATIVE); URINE LEUK ESTERASE NEGATIVE (NEGATIVE); URINE NITRITE NEGATIVE (NEGATIVE); URINE PROTEIN NEGATIVE (NEGATIVE); URINE UROBILINOGEN NEGATIVE mg/dL (0.2-1.0)
[2018-04-25 23:11] VITALS: BP 99/56; PULSE 76; TEMP 98.6
== END 2018-04-25 23:12 | disposition home or self-care (01) ==
LOC: JER 16:47 → JERFT 16:47 → JER 23:12
PROC: 3E033NZ Introduction of Analgesics, Hypnotics, Sedatives into Peripheral Vein, Percutaneous Approach (ICD-10-PCS; principal; 2018-04-25)
PROC: 3E033GC Introduction of Other Therapeutic Substance into Peripheral Vein, Percutaneous Approach (ICD-10-PCS; 2018-04-25)
DX: S29.8XXA Other specified injuries of thorax, initial encounter (principal); R07.81 Pleurodynia; R10.12 Left upper quadrant pain; W01.190A Fall on same level from slipping, tripping and stumbling with subsequent striking against furniture, initial encounter; Y93.89 Activity, other specified; Y92.032 Bedroom in apartment as the place of occurrence of the external cause
CPT/HCPCS: 36415; 71046-TC-FY; 71101-TC-FY; 71250-TC; 74176-TC; 80053; 81003; 84703; 85025; 85610; 86850; 86900; 86901; 96374; 96375; 99281-25; J7030

== ENCOUNTER 2018-11-13 17:06 | Emergency (ER) | payer OTHER | END 2018-11-13 18:03 | disposition home or self-care (01) | LOC: JERFT 17:06 ==

== ENCOUNTER 2019-04-03 19:30 | Emergency (ER) | payer OTHER ==
--- NOTE | 2019-04-03 19:53 | PDOC ---
Rapid Medical Evaluation Time Seen by Provider: 04/03/19 19:50 Medical Evaluation: Allergies Allergy/AdvReac Type Severity Reaction Status Date / Time No Known Allergies Allergy Verified 11/13/18 17:08 04/03/19 19:50 Pt c/o: abd pain x 1 day radiating to back. dysuria, no other complaints, had uti in past with similar s/s Pt on brief exam: mild rt cva tenderness and mid suprapubic discomfort Pt ordered for : ua uc x u preg pt to proceed to the ED Discharge Disposition - Diagnosis Pyelonephritis - Discharge Dispostion Disposition: HOME Condition at time of disposition: Improved - Prescriptions Prescriptions: Cefdinir [Omnicef -] 300 mg PO BID #20 capsule - Referrals Referrals: Princess Carl MD [Primary Care Provider] - - Patient Instructions Printed Discharge Instructions: Urinary Tract Infection Additional Instructions: Drink plenty of fluids Take ibuprofen every 6 hours as needed for pain Take cefdinir as prescribed Follow-up with your primary care doctor as soon as possible. You need to repeat urine test once your antibiotic is completed. We will call you if you're antibiotic needs to be changed. - Post Discharge Activity Work/School Note: Back to Work
[2019-04-03 19:55] VITALS: BP 102/56; TEMP 98.1; BMI 24.4
[2019-04-03] MEDS ORDERED: SODIUM CHLORIDE 0.9% 500 ML INFUS.BAG IV ONE (20:58)
[2019-04-03] MEDS ORDERED: ACETAMINOPHEN 1000 MG/100 ML VIAL (NON FORMULARY) IVPB ONE (20:59)
--- NOTE | 2019-04-03 21:01 | PDOC ---
History of Present Illness - General Chief Complaint: Pain Stated Complaint: STOMACH PAIN Time Seen by Provider: 04/03/19 19:50 History Source: Patient - History of Present Illness Initial Comments: 04/03/19 20:56 38 year old female c/o suprapubic pain raidating to right flank since yesterday. + subjective fever, + dysuria. denies vaginal discharge, denies nausea/ vomiting. PMHX: hypothyroidism Past History - Past Medical History Allergies/Adverse Reactions: Allergies Allergy/AdvReac Type Severity Reaction Status Date / Time No Known Allergies Allergy Verified 04/03/19 19:53 Home Medications: Ambulatory Orders Levothyroxine [Synthroid -] 50 mcg PO DAILY 04/25/18 Cefdinir [Omnicef -] 300 mg PO BID #20 capsule 04/04/19 COPD: No Thyroid Disease: Yes (hypo) - Surgical History Appendectomy: Yes - Reproductive History (#): 3 Para: 3 Cervical CA: No Dysfunctional Uterine Bleeding: No Ectopic : No Endometrial CA: No Polycystic Ovaries: No Tubal Ligation: No - Psycho Social/Smoking Cessation Hx Smoking Status: No Smoking History: Never smoked Have you smoked in the past 12 months: No Number of Cigarettes Smoked Daily: 0 Hx Alcohol Use: No Drug/Substance Use Hx: No Substance Use Type: None Review of Systems - Review of Systems Able to Perform ROS?: Yes Is the patient limited Marshallese proficient: No Constitutional: Yes: Fever ABD/GI: Yes: Abdominal cramping : Yes: Burning, Dysuria, Frequency, Flank Pain, Pain, Urgency. No: Discharge *Physical Exam - Vital Signs Last Vital Signs Temp Pulse Resp BP Pulse Ox 98.1 F 81 18 102/56 L 99 04/03/19 19:53 04/03/19 19:53 04/03/19 19:53 04/03/19 19:53 04/03/19 19:53 - Physical Exam General Appearance: Yes: Appropriately Dressed, Mild Distress Respiratory/Chest: positive: Lungs Clear, Normal Breath Sounds Cardiovascular: positive: Regular Rhythm, Regular Rate Gastrointestinal/Abdominal: positive: Normal Bowel Sounds, Tender (suprapubic area) Musculoskeletal: positive: Normal Inspection, CVA Tenderness (R) Integumentary: positive: Normal Color, Dry, Warm Neurologic: positive: Fully Oriented, Alert, Normal Mood/Affect ED Treatment Course - LABORATORY CBC & Chemistry Diagram: 04/03/19 21:35 04/03/19 22:00 ED Progress Note - Progress Note Progress Note: 04/03/19 21:03 A: pyelo vs stone P; labs ua urine culture Medical Decision Making - Medical Decision Making 04/04/19 00:46 CT: no acute pathology Discharge - Discharge Information Problems reviewed: Yes Clinical Impression/Diagnosis: Pyelonephritis - Additional Discharge Information Prescriptions: Cefdinir [Omnicef -] 300 mg PO BID #20 capsule - Follow up/Referral Referrals: Princess Carl MD [Primary Care Provider] - - Patient Discharge Instructions Patient Printed Discharge Instructions: Urinary Tract Infection Additional Instructions: Drink plenty of fluids Take ibuprofen every 6 hours as needed for pain Take cefdinir as prescribed Follow-up with your primary care doctor as soon as possible. You need to repeat urine test once your antibiotic is completed. We will call you if you're antibiotic needs to be changed. - Post Discharge Activity Work/Back to School Note: Back to Work
[2019-04-03] MEDS ORDERED: ONDANSETRON 4 MG/2 ML VIAL ONE (21:36)
[2019-04-03] MEDS ORDERED: ACETAMINOPHEN INJECTION 100 ML IVPB ONE (21:36)
[2019-04-03] MEDS ORDERED: ONDANSETRON 4 MG/2 ML VIAL IVPUSH ONE (21:38)
[2019-04-03 21:47] LABS: BASO % 0.6 % (0-2.0); EOS % 1.2 % (0-4.5); HEMOGLOBIN 12.1 GM/dL (10.7-15.3); LYMPH % 21.6 % (8-40); MCH 28.5 pg (25.7-33.7); MCHC 32.8 g/dl (32.0-36.0); MEAN CELL VOLUME 87.1 fl (80-96); MEAN PLT VOLUME 9.6 fl (7.5-11.1); MONO % 4.3 % (3.8-10.2); NEUT % 72.3 % (42.8-82.8); PLATELET COUNT 296 K/MM3 (134-434); RBC 4.25 M/mm3 (3.60-5.2); RDW 14.8 % (11.6-15.6); WHITE BLOOD COUNT 13.3 K/mm3 (4.0-10.0)
[2019-04-03 22:36] LABS: URINE COLOR RED
[2019-04-03 22:37] LABS: URINE APPEARANCE TURBID; URINE BILIRUBIN MODERATE (NEGATIVE); URINE GLUCOSE (UA) NEGATIVE (NEGATIVE); URINE KETONE NEGATIVE (NEGATIVE)
[2019-04-03 22:38] LABS: EPI CELLS 1.3 /HPF (0-5/HPF); URINE LEUK ESTERASE LARGE (NEGATIVE); URINE NITRITE POSITIVE (NEGATIVE); URINE PROTEIN 300 (NEGATIVE); URINE RBC 2207.8 /hpf (0-4); URINE UROBILINOGEN 0.2 mg/dL (0.2-1.0); URINE WBC 368.1 /hpf (0-5)
[2019-04-03 22:38] LABS: ALBUMIN 3.2 g/dl (3.4-5.0); BILIRUBIN,TOTAL 0.1 mg/dL (0.2-1); BLOOD UREA NITROGEN 12.8 mg/dL (7-18); CALCIUM 7.5 mg/dL (8.5-10.1); CREATININE 0.6 mg/dL (0.55-1.3); POTASSIUM 3.3 mmol/L (3.5-5.1); TOT PROT 5.7 g/dl (6.4-8.2)
[2019-04-03 22:39] LABS: HYALINE CASTS 1625.54 /lpf (0-8); URINE BACTERIA 55.7 /hpf (NEGATIVE)
[2019-04-03] MEDS ORDERED: CEFTRIAXONE 1,000 MG in DEXTROSE 5%-WATER - 50 ML IVPB ONE (23:13)
[2019-04-03] MEDS ORDERED: POTASSIUM CHLORIDE TABS 20 MEQ TABLET.ER (FP) PO ONE ×2 (23:28→23:40)
[2019-04-03] MEDS ORDERED: CEFTRIAXONE 1 GM/50 ML BAG ONE (23:40)
[2019-04-04 01:11] VITALS: PULSE 86
== END 2019-04-04 01:11 | disposition home or self-care (01) ==
LOC: JER 19:30
PROC: 3E03329 Introduction of Other Anti-infective into Peripheral Vein, Percutaneous Approach (ICD-10-PCS; principal; 2019-04-03)
PROC: 3E033GC Introduction of Other Therapeutic Substance into Peripheral Vein, Percutaneous Approach (ICD-10-PCS; 2019-04-03)
PROC: 3E033NZ Introduction of Analgesics, Hypnotics, Sedatives into Peripheral Vein, Percutaneous Approach (ICD-10-PCS; 2019-04-03)
DX: N12 Tubulo-interstitial nephritis, not specified as acute or chronic (principal); Z87.440 Personal history of urinary (tract) infections; E03.9 Hypothyroidism, unspecified
CPT/HCPCS: 36415; 74176-TC; 80053; 81003; 84703; 85025; 87086; 87186; 96365; 96375; 99283-25; J0131